=== PATIENT | male | born 1985 | race African-American/Black ===

== ENCOUNTER 2017-07-07 18:29 | Emergency (ER) | payer MEDICAID ==
[~2017-07-07] VITALS: Ht 182.9 cm; Wt 73.0 kg
[2017-07-07] MEDS ORDERED: KETOROLAC 30MG/ML VIAL IM ONE (19:15)
[2017-07-07] MEDS ORDERED: HYDROCODONE/ACETAMINOPHEN 5/325MG TABLET PO ONE (21:15)
[2017-07-07 21:45] VITALS: BP 149/95
== END 2017-07-07 22:05 | disposition home or self-care (01) ==
LOC: ER 22:05
DX: M25.512 Pain in left shoulder (principal); R20.2 Paresthesia of skin; R03.0 Elevated blood-pressure reading, without diagnosis of hypertension; F12.90 Cannabis use, unspecified, uncomplicated; Z88.0 Allergy status to penicillin
CPT/HCPCS: 73030; 96372; 99284; J1885; Z7610; A4565